=== PATIENT | male | born 1945 | race Native Hawaiian/Other Pacific Islander ===

== ENCOUNTER 2016-11-16 19:28 | Inpatient (IN) | payer MEDICARE ==
[2016-11-16 21:02] LABS: BASO # 0.1 K/uL (0.0-0.2); BASO % 1.3 % (0.0-2.0); EOS # 0.1 K/uL (0.0-0.7); EOS % 1.7 % (0.0-4.0); HEMATOCRIT 23.4 % (35.0-51.0); LYMPH # 1.1 K/uL (1.0-4.3); LYMPH % 16.3 % (20.0-40.0); MEAN CELL VOLUME 61.2 fl (80.0-94.0); MEAN CORPUSCULAR HEMOGLOBIN 16.5 pg (27.0-31.0); MEAN CORPUSCULAR HGB CONC 26.9 g/dL (33.0-37.0); MEAN PLATELET VOLUME 8.6 fl (7.2-11.7); MONO # 0.7 K/uL (0.0-0.8); MONO % 9.4 % (0.0-10.0); NEUT % 71.3 % (50.0-75.0); NRBC % 0.1 % (0.0-0.0); RED CELL DISTRIBUTION WIDTH 21.7 % (11.5-14.5)
[2016-11-16 21:13] LABS: IRON 16 ug/dL (49-181)
[2016-11-16 21:17] LABS: ALB/GLOB RATIO 1.7 (1.0-2.1); ALKALINE PHOSPHATASE 44 U/L (38-126); ALT/SGPT 39 U/L (21-72); AST/SGOT 21 U/L (17-59); BILIRUBIN,TOTAL 0.4 mg/dl (0.2-1.3); BLOOD UREA NITROGEN 19 mg/dl (9-20); CARBON DIOXIDE 28 mmol/L (22-30); CHLORIDE 105 mmol/L (98-107); GFR AFRICAN-AMERICAN > 60; GLUCOSE,RANDOM 118 mg/dL (75-110); POTASSIUM 4.4 MMOL/L (3.6-5.0); SODIUM 142 mmol/l (132-148); TOTAL PROTEIN 6.5 G/DL (6.3-8.2)
--- NOTE | 2016-11-16 22:07 | ED PDOC ---
HPI: General Adult Time Seen by Provider: 11/16/16 19:59 Chief Complaint (Nursing): Abdominal Pain Chief Complaint (Provider): Abnormal Labs History Per: Patient History/Exam Limitations: no limitations Additional Complaint(s): Isha Sanchez, a 71 year old male, is sent in to the ED by Dr. Archer for abnormal labs(low hemoglobin). The patient states that at his last doctor's visit he was found to be pale with a hemoglobin of 6.7. Patient's only complaint is that his energy has been very low. Denies abdominal pain,chest pain , shortness of breath, bloody stool, vomiting. Past Medical History Reviewed: Historical Data, Nursing Documentation, Vital Signs Vital Signs: Last Vital Signs Temp 99 F 11/16/16 19:40 Pulse 65 11/16/16 19:40 Resp 16 11/16/16 19:40 BP 154/80 H 11/16/16 19:40 Pulse Ox 100 11/16/16 22:18 - Medical History PMH: Anemia (chronic iron deficient anemia.), Diabetes, HTN Denies: Chronic Kidney Disease - Surgical History Surgical History: Hernia Repair - Family History Family History: States: Unknown Family Hx - Home Medications Home Medications: Ambulatory Orders Medication Instructions Recorded Atorvastatin [Lipitor] 1 tab PO HS 11/16/16 Canagliflozin [Invokana] 1 tab PO DAILY 11/16/16 Carvedilol [Coreg] 1 tab PO DAILY 11/16/16 Lisinopril [Zestril] 1 tab PO DAILY 11/16/16 MetFORMIN [glucoPHAGE] 1 tab PO BID 11/16/16 Saxagliptin HCl [Onglyza] 1 tab PO DAILY 11/16/16 - Allergies Allergies/Adverse Reactions: Allergies Allergy/AdvReac Type Severity Reaction Status Date / Time No Known Allergies Allergy Verified 11/16/16 19:40 Review of Systems ROS Statement: Except As Marked, All Systems Reviewed And Found Negative Constitutional: Positive for: Other (Low hemoglobin) Cardiovascular: Negative for: Chest Pain Respiratory: Negative for: Shortness of Breath Gastrointestinal: Negative for: Vomiting, Abdominal Pain, Hematochezia Physical Exam - Reviewed Nursing Documentation Reviewed: Yes Vital Signs Reviewed: Yes - Physical Exam Appears: Positive for: Non-toxic, No Acute Distress Head Exam: Positive for: ATRAUMATIC, NORMAL INSPECTION, NORMOCEPHALIC Skin: Positive for: Warm, Dry, Pallor Eye Exam: Negative for: Normal appearance (Pale conjunctivus;), Scleral icterus ENT: Positive for: Normal ENT Inspection Neck: Positive for: Normal, Painless ROM, Supple Cardiovascular/Chest: Positive for: Regular Rate, Rhythm, Chest Non Tender. Negative for: Tachycardia Respiratory: Positive for: Normal Breath Sounds. Negative for: Wheezing, Respiratory Distress Gastrointestinal/Abdominal: Positive for: Normal Exam, Bowel Sounds, Soft. Negative for: Tenderness, Guarding, Rebound Back: Positive for: Normal Inspection Extremity: Positive for: Normal ROM. Negative for: Tenderness, Pedal Edema, Deformity, Swelling Neurologic/Psych: Positive for: Alert, Oriented, Gait - Laboratory Results Result Diagrams: 11/16/16 20:40 11/16/16 20:40 - ECG O2 Sat by Pulse Oximetry: 100 (RA) Pulse Ox Interpretation: Normal Medical Decision Making Medical Decision Makin Initial Impression: 71 year old male presenting with acute and chronic anemia rule out GI bleed Differential: Most likely worsening iron deficient anemia Initial Plan: * Crossmatch * Type and Screen * EKG * Comp Metabolic Panel * Folate * Iron & TIBC * LDH * B12 * CBC * PTT * Prothrombin Time * Folate RBC * Haptoglobin * Reevaluation * 2 units of RBC transfusion ____ Scribe Attestation Documented by Kim Mohr acting as a scribe for Carlos Enrique Mayen MD. Provider Attestation: All medical record entries made by the Scribe were at my direction and personally dictated by me. I have reviewed the chart and agree that the record accurately reflects my personal performance of the history, physical exam, medical decision making, and the department course for this patient. I have also personally directed, reviewed, and agree with the discharge instructions and disposition. Disposition - Clinical Impression Clinical Impression: Severe anemia - Patient ED Disposition Is Patient to be Admitted: No Discussed With : Mickey Bazan Counseled Patient/Family Regarding: Studies Performed, Diagnosis, Need For Followup - Disposition Disposition Time: 21:00 Condition: FAIR - Pt Status Changed To: Hospital Disposition Of: Observation - POA Present On Arrival: None
[2016-11-17 00:11] LABS: FOLATE 7.1 ng/mL
[2016-11-17 08:10] VITALS: O2SAT 98
[2016-11-17] MEDS ORDERED: CANAGLIFLOZIN PO SCH (09:00)
[2016-11-17] MEDS ORDERED: LISINOPRIL PO SCH (09:00)
[2016-11-17] MEDS ORDERED: SAXAGLIPTIN HCL PO SCH (09:00)
--- NOTE | 2016-11-17 10:41 | CP.PCM.HP ---
History of Present Illness - History of Present Illness History of Present Illness: This is a 71 y/o male admitted for rapidly worsening anemia. He has a hx of HTN and DM 2. and protate cancer treated with radiation 4 years ago. He was noted to have a drop in Hgb from 16 in May to 10.6 in July. He denies having any change in stool color, he denies any weight loss. Stool for occult blood was negative in June 2016. He had not had any colonoscopy as he refused every time he was advised to do so. There was no abdominal pain. He came for follow up to my office last week after a hernia repair few weeks ago and was noted generalized pallor. CBC showed a drop og Hgb to 6.4 hence advised hospitalization. Medical Hx DM 2 uncontrolled HTN controled recent hernia repair Prostate cancer treated with radiation 4 years ago but recently note to have a rise in PSA again. Present on Admission - Present on Admission Any Indicators Present on Admission: No History of DVT/PE: No History of Uncontrolled Diabetes: Yes Urinary Catheter: No Decubitus Ulcer Present: No Review of Systems - Constitutional Constitutional: Fatigue Past Patient History - Past Medical History & Family History Past Medical History?: Yes - Past Social History Smoking Status: Light Smoker < 10 Cigarettes Daily - CARDIAC Hx Cardiac Disorders: Yes Hx Hypertension: Yes - PULMONARY Hx Respiratory Disorders: No - NEUROLOGICAL Hx Neurological Disorder: No - HEENT Hx HEENT Problems: Yes Other/Comment: Uses eye glasses - RENAL Hx Chronic Kidney Disease: No - ENDOCRINE/METABOLIC Hx Endocrine Disorders: Yes Hx Diabetes Mellitus Type 2: Yes - HEMATOLOGICAL/ONCOLOGICAL Hx Blood Disorders: Yes Hx Anemia: Yes (chronic iron deficient anemia.) - INTEGUMENTARY Hx Dermatological Problems: No - MUSCULOSKELETAL/RHEUMATOLOGICAL Hx Musculoskeletal Disorders: No Hx Falls: No - GASTROINTESTINAL Hx Gastrointestinal Disorders: No - GENITOURINARY/GYNECOLOGICAL Hx Genitourinary Disorders: Yes Hx Prostate Cancer: Yes - PSYCHIATRIC Hx Psychophysiologic Disorder: No Hx Substance Use: No - SURGICAL HISTORY Hx Surgeries: Yes Hx Herniorrhaphy: Yes - ANESTHESIA Hx Anesthesia: Yes Hx Anesthesia Reactions: No Meds Allergies/Adverse Reactions: Allergies Allergy/AdvReac Type Severity Reaction Status Date / Time No Known Allergies Allergy Verified 11/16/16 19:40 Physical Exam - Constitutional Additional comments: generalized pallor - Head Exam Head Exam: NORMAL INSPECTION - Eye Exam Eye Exam: Normal appearance - ENT Exam ENT Exam: Mucous Membranes Moist - Respiratory Exam Respiratory Exam: Clear to Auscultation Bilateral - Cardiovascular Exam Cardiovascular Exam: REGULAR RHYTHM - GI/Abdominal Exam GI & Abdominal Exam: Normal Bowel Sounds - Neurological Exam Neurological exam: Alert, CN II-XII Intact, Oriented x3 - Psychiatric Exam Psychiatric exam: Normal Mood Results - Vital Signs Recent Vital Signs: Last Vital Signs Temp 98.6 F 11/17/16 08:09 Pulse 54 L 11/17/16 09:38 Resp 20 11/17/16 08:09 BP 168/80 H 11/17/16 09:38 Pulse Ox 98 11/17/16 08:09 - Labs Result Diagrams: 11/16/16 20:40 11/16/16 20:40 Labs: Laboratory Results - last 24 hr 11/16/16 11/16/16 11/17/16 22:11 22:53 05:59 POC Glucose (mg/dL) 114 H Ferritin 5.4 Blood Type Confirm O POSITIVE 11/17/16 07:57 POC Glucose (mg/dL) 108 Ferritin Blood Type Confirm Assessment & Plan (1) Severe anemia Status: Acute (2) Diabetes mellitus type 2 in obese Status: Acute (3) Hypertension Status: Acute (4) Prostate cancer Status: Acute - Assessment and Plan (Free Text) Plan: transfusion was given x 2 units follow up cbc follow up with GI Discussed with Dr Pinto will have a follow up as outpatient.
[2016-11-17] MEDS ORDERED: Iohexol 240 (50 ml) PO ONE (10:42)
--- NOTE | 2016-11-17 10:43 | CARD ---
APPROVED REPORT EKG Measurement Heart [id number] <Conclusion> Normal sinus rhythm Normal ECG motion artefact is present
[2016-11-17 11:33] LABS: HEMATOCRIT 28.8 % (35.0-51.0); MEAN CORPUSCULAR HEMOGLOBIN 19.1 pg (27.0-31.0); MEAN CORPUSCULAR HGB CONC 29.4 g/dL (33.0-37.0); RED CELL DISTRIBUTION WIDTH 26.9 % (11.5-14.5); WHITE BLOOD COUNT 6.9 K/uL (4.8-10.8)
[2016-11-17] MEDS ORDERED: Sodium Chloride 0.9% 50 ML IV ONE (14:46)
[2016-11-17] MEDS ORDERED: Iohexol 300 100 ML IJ ONE (14:47)
[2016-11-17 15:56] VITALS: BP 156/79; PULSE 53; RESP 17; TEMP 97.4
--- NOTE | 2016-11-17 16:29 | CT ---
PROCEDURE: CT Abdomen and Pelvis with contrast HISTORY: anemia COMPARISON: None. TECHNIQUE: Contrast dose: 100 cc of Omnipaque 300 Radiation dose: Total exam DLP = 693 mGy-cm. This CT exam was performed using one or more of the following dose reduction techniques: Automated exposure control, adjustment of the mA and/or kV according to patient size, and/or use of iterative reconstruction technique. FINDINGS: LOWER THORAX: Unremarkable. LIVER: 1 centimeter right hepatic cyst.. No gross lesion or ductal dilatation. GALLBLADDER AND BILE DUCTS: Unremarkable. PANCREAS: Unremarkable. No gross lesion or ductal dilatation. SPLEEN: Unremarkable. ADRENALS: Unremarkable. No mass. KIDNEYS AND URETERS: Multiple small bilateral renal cysts are identified measuring up to 2 centimeters in the left mid kidney.. No hydronephrosis. No solid mass. VASCULATURE: Unremarkable. No aortic aneurysm. BOWEL: Unremarkable. No obstruction. No gross mural thickening. APPENDIX: Normal appendix. PERITONEUM: Unremarkable. No free fluid. No free air.. Please correlate for symptomology in this region. LYMPH NODES: Unremarkable. No enlarged lymph nodes. BLADDER: Unremarkable. REPRODUCTIVE: Unremarkable. BONES: No acute fracture. OTHER FINDINGS: Soft tissue density noted in the left inguinal region is noted possibly representing sequela of previous hernia repair. IMPRESSION: Evidence of previous left inguinal hernia repair. Bilateral renal cysts and hepatic cyst.
--- NOTE | 2016-11-18 08:32 | CON ---
DATE: 11/17/2016 REFERRING PHYSICIAN: Mickey Bazan MD REASON FOR CONSULTATION: Anemia. HISTORY OF PRESENT ILLNESS: This is a 71-year-old man who had recent hernia repair. He was essentially was admitted because for the past six months, had consistent, persistent drop in hemoglobin with no actually evidence of bleeding. Reports no hematemesis or hematochezia. No black stool. No melena. No vomiting of blood. No real weight loss, no heartburn, no reflux. No abdominal complaints or discomfort. PAST MEDICAL HISTORY: disease, diabetes, hypertension. PAST SURGICAL HISTORY: Hernia repair. FAMILY HISTORY: Noncontributory. REVIEW OF SYSTEMS: All other systems have been reviewed and negative apart from the HPI. PHYSICAL EXAMINATION: VITAL SIGNS: In the hospital, grossly unremarkable. GENERAL: Pleasant, elderly appearing male, lying comfortably on bed, in no apparent distress. HEENT: Head normocephalic, atraumatic. Eyes, pupils equal, round and reactive to light bilaterally. No conjunctival pallor or icterus. NECK: Supple. Normal range of motion. No lymphadenopathy appreciated. LUNGS: Coarse breath sounds bilaterally. HEART: S1, S2, regular rate and rhythm. No murmurs appreciated. ABDOMEN: Soft, nontender, bowel sounds present. No rebound. No guarding. RECTAL: Deferred. EXTREMITIES: Pulses felt bilaterally. SKIN: Warm, dry, and intact. NEUROLOGIC: A and O x3. LABORATORY DATA: Reviewed. WBC is 7.9, hemoglobin 6.3, hematocrit 20.4, platelet count is normal. LFTs are essentially remarkable. ASSESSMENT AND PLAN: A 71-year-old male with anemia. At this point, pt refusing endoscopic workup. We will consider CT of the abdomen and pelvis. Thank you for the consult. Westley Pinto MD/ PhD MTDD
== END 2016-11-17 17:50 | disposition home or self-care (01) | DRG 812 ==
LOC: H.ER 19:28 → H.ERHOLD 21:13 → OBSVTOIN 21:13 → H.MEDSURG1 22:30
PROVIDERS: ADMIT Family Medicine; ATTEND Family Medicine
PROC: 30233N1 Transfusion of Nonautologous Red Blood Cells into Peripheral Vein, Percutaneous Approach (ICD-10-PCS; principal; 2016-11-16)
DX: D50.0 Iron deficiency anemia secondary to blood loss (chronic) (principal); R71.0 Precipitous drop in hematocrit; I10 Essential (primary) hypertension; E11.9 Type 2 diabetes mellitus without complications; Z85.46 Personal history of malignant neoplasm of prostate; E66.9 Obesity, unspecified; Z92.3 Personal history of irradiation; F17.210 Nicotine dependence, cigarettes, uncomplicated; Z68.25 Body mass index [BMI] 25.0-25.9, adult